=== PATIENT | female | born 1985 | race Caucasian/White ===

== ENCOUNTER → 2019-10-15 18:00 | Outpatient (BNVA) | payer OTHER, SELFPAY | PROVIDERS: Family Provider Family Medicine; PCP Family Medicine; Visit Provider Family Medicine | DX: R10.2 Pelvic and perineal pain (principal); L25.9 Unspecified contact dermatitis, unspecified cause; Z97.5 Presence of (intrauterine) contraceptive device | CPT/HCPCS: 80053; 81000; 87491; 87591; 87661 ==

== ENCOUNTER → 2019-10-23 13:08 | Outpatient (BNVA) | payer OTHER, SELFPAY | PROVIDERS: Family Provider Family Medicine; PCP Family Medicine; Referring Provider Family Medicine; Visit Provider Family Medicine | DX: R10.2 Pelvic and perineal pain (principal) | CPT/HCPCS: 87491; 87591; 87661 ==

== ENCOUNTER → 2019-11-07 14:48 | Outpatient (BNVA) | payer OTHER, SELFPAY | PROVIDERS: Family Provider Family Medicine; PCP Family Medicine; Visit Provider Nurse Practitioner Family | DX: R05 Cough (principal) | CPT/HCPCS: 87635 ==

== ENCOUNTER → 2024-07-12 08:05 | Outpatient (BNVA) | payer OTHER, SELFPAY | PROVIDERS: Family Provider Family Medicine; PCP Family Medicine; Visit Provider Family Medicine | DX: N91.2 Amenorrhea, unspecified (principal); R68.82 Decreased libido; Z00.00 Encounter for general adult medical examination without abnormal findings | CPT/HCPCS: 80053; 80061; 82627; 82670; 84144; 84403; 84443; 85025 ==

== ENCOUNTER 2024-07-21 19:22 | Emergency (ER) | payer OTHER, SELFPAY ==
[2024-07-21] VITALS (9 sets, daily range): BP systolic 98–131; BP diastolic 51–75; PULSE 63–123; RESP 15–20; TEMP 37.6–39.4; O2SAT 92–98; BMI 27.2
--- NOTE | 2024-07-21 20:11 | CTR_ITS ---
PROCEDURE INFORMATION: Exam: CT Abdomen And Pelvis With Contrast Exam date and time: 07/21/2024 8:57 PM Age: 39 years old Clinical indication: Abdominal pain; Localized; Left lower quadrant (llq); Prior surgery; Surgery date: 6+ months; Surgery type: Gb. Hernia repair. Iud. C/O llq pain with fever. History of diverticulitis. ; Additional info: Llq pain fever TECHNIQUE: Imaging protocol: Computed tomography of the abdomen and pelvis with contrast. Radiation optimization: All CT scans at this facility use at least one of these dose optimization techniques: automated exposure control; mA and/or kV adjustment per patient size (includes targeted exams where dose is matched to clinical indication); or iterative reconstruction. Contrast material: OMNI 350; Contrast volume: 100 ml; Contrast route: INTRAVENOUS (IV); COMPARISON: No relevant prior studies available. RADIATION DOSE METRICS: Total DLP (mGy-cm): 406.26 FINDINGS: Lungs: Subsegmental bibasilar atelectasis. The visualized lung bases are otherwise grossly clear. Diaphragm: No evidence of diaphragmatic defect. Liver: No focal hepatic lesion. Gallbladder and biliary ducts: Status post cholecystectomy. No evidence of intrahepatic or extrahepatic biliary dilatation. Pancreas: Unremarkable. Spleen: Unremarkable. Adrenal glands: Unremarkable. Kidneys and ureters: Focal parenchymal hypoenhancement of the mid left kidney suggestive of focal pyelonephritis (images 21-22 of series 3 and image 22 of series 5). No discrete fluid collection to suggest abscess. No evidence of parenchymal abnormality on the right. No evidence of hydronephrosis or ureteral stone. Stomach and bowel: Few scattered colonic diverticula without evidence of acute diverticulitis. No evidence of bowel obstruction or perienteric inflammatory changes. Appendix: Normal appendix. Intraperitoneal space: No evidence of free air or fluid collection. Vasculature: No aneurysmal dilatation or dissection of the abdominal aorta. The celiac trunk, SMA and SOURAV are grossly patent. No evidence of IVC thrombus. The portal vein, SMV and splenic veins are grossly patent. Lymph nodes: No adenopathy. Urinary bladder: Grossly unremarkable. Reproductive: IUD in place in expected position. Otherwise grossly unremarkable. Bones/joints: No evidence of acute fracture or aggressive osseous lesion. Soft tissues: No evidence of fluid collection or hematoma in the superficial soft tissues. CT/CT abdomen pelvis w con* [id number] IMPRESSION: 1. Findings suggestive of focal pyelonephritis on the left.
[2024-07-21 20:19] LABS: Basophils # 0.1 10^3/uL (0.0-0.1); Basophils % 0.4 %; Eosinophils # 0.2 10^3/uL (0.0-0.8); Eosinophils % 1.2 %; Lymphocytes # 1.5 10^3/uL (0.8-4.8); Lymphocytes % 10.5 %; Mean Corpuscular HGB Conc 34.3 g/dL (30-55); Mean Corpuscular Volume 90.5 fl (85-98); Monocytes # 1.3 10^3/uL (0.2-0.9); Monocytes % 9.4 %; Neutrophils # 11.06 10^3/uL (1.8-7.7); Neutrophils % 77.9 %; Nucleated Red Blood Cells % 0 %; Platelet Count 351 10^3/cmm (157-399); Red Blood Count 4.64 10^6/uL (3.85-5.65); Red Cell Distribution Width 13.3 % (12.1-15.1); White Blood Count 14.19 10^3/uL (3.29-11.43)
[2024-07-21 20:23] LABS: Bilirubin Urine Negative (Negative); Blood Urine Negative (Negative); Glucose Urine UA Negative (Normal); Ketones Urine 1+ (Negative); Leukocyte Esterase Urine Negative (Negative); Nitrate Urine Negative (Negative); Protein Urine Trace (Negative); Specific Gravity, Urine 1.016 (1.005-1.030); Urine Appearance Clear (CLEAR); Urine Color Yellow (Yellow); pH Urine 7.5 (5-7)
[2024-07-21 20:28] LABS: Add Urine Microscopic? YES; Bacteria Urine 1+ /hpf; Hyaline Casts Urine 0-4 /lpf; RBC Urine 0-2 /hpf (0-2); Squamous Epithelial Cell Urine 0-5 /hpf (0-5); WBC Urine 0-5 /hpf (0-5)
[2024-07-21 20:33] LABS: HCG, Serum Qual Negative (Negative)
[2024-07-21 20:38] LABS: Lactic Sepsis W/Reflex 0.6 mmol/L (0.5-2.2)
[2024-07-21 20:39] LABS: Alanine Aminotransferase 36 U/L (0-33); Albumin Level 4.5 g/dL (3.5-5.2); Alkaline Phosphatase 55 U/L (35-105); Anion Gap 16.9 (5-19); Aspartate Amino Transferase 25 U/L (0-32); Blood Urea Nitrogen 12 mg/dL (6-20); Calcium 8.8 mg/dL (8.5-10.5); Carbon Dioxide 21 mmol/L (22-29); Chloride 103 mmol/L (98-107); Creatinine Clr Calc Pharmacy 75.6407; Globulin 2.7 g/dL (1.3-4.6); Glomerular Filtration Rate 69.7 mL/min (90-130); Glucose 98 mg/dL (65-115); Lipase 51 U/L (13-60); Osmolality Calculated 284 mOsm/kg (285-295); Potassium 3.9 mmol/L (3.5-5.1); Sodium 137 mmol/L (136-145); Total Bilirubin 0.8 mg/dL (0.15-1.2); Total Protein 7.2 g/dL (6.6-8.7)
[2024-07-21] MEDS: ketorolac 30 mg/mL INJ IVP (20:39)
[2024-07-21] MEDS: morphine 4 mg/mL SDV 1 mL IVP (20:39)
[2024-07-21] MEDS: ondansetron 2 mg/ML SDV 2 mL 4 MG IVP (20:40)
[2024-07-21] MEDS: sodium chloride 0.9% 1,000 ML 999 ML IV (20:40)
--- NOTE | 2024-07-21 20:47 | W.ED.ABDPA2 ---
HPI - Abdominal Pain General: Chief Complaint: Abdominal Pain Stated Complaint: fever, L side pain Time Seen by Provider: 07/21/24 20:06 History of Present Illness: 39-year-old healthy female. She presents with left lower quadrant pain, that she says started in her back and flank on the left side. She developed a fever over the course of the day. She is nauseated. Pain is improved she does not move. She has had diverticulitis in the past, but did not have back pain with that. She is also had a kidney stone in the past as well, but did not have fever with that. Fever has been as high as 103. No respiratory symptoms. Related Data Home Medications ?Medication ?Instructions ?Recorded ?Confirmed levonorgestrel (Mirena) intrauterine 10/15/19 02/13/24 levothyroxine 75 mcg capsule 75 mcg PO DAILY 10/15/19 02/13/24 Previous Rx's ?Medication ?Instructions ?Recorded dextroamphetamine-amphetamine 20 20 mg PO BID 60 days #120 tabs 06/28/24 mg tablet (Adderall) levofloxacin 500 mg tablet 500 mg PO DAILY 7 days #7 tabs 07/21/24 ondansetron 4 mg disintegrating 4 mg PO Q6H PRN nausea and 07/21/24 tablet vomiting #14 tabs oxycodone-acetaminophen 7.5 mg-325 1 tab PO Q6H PRN pain #10 tabs 07/21/24 mg tablet (Percocet) Allergies Allergy/AdvReac Type Severity Reaction Status Date / Time adhesive Allergy rash Verified 02/13/24 15:09 [facility] PFSH: Medical History Low testosterone level in female Annual physical exam Diverticulosis hospitalized w/ diverticulitis 7..24 Primary insomnia IUD (intrauterine device) in place Mirena ADHD Hypothyroidism Surgical History Hx of colonoscopy 8..24--diverticulosis and hemorrhoids H/O breast augmentation History of cholecystectomy H/O hernia repair umbilical Family History (Updated 02/13/24 @ 15:13 by Adele Schafer LPN) Father Alcohol dependence Mother No problems noted. Social History (Reviewed 07/21/24 @ 20:49 by ROYCE Payne Smoking and tobacco/nicotine status: current some day tobacco/nicotine user (vapor) e-cigarettes Alcohol intake: current Alcohol intake frequency: holidays/special occasions only Alcohol type: beer Substance/Drug Use: current Substance/Drug use frequency: Special occassions/opportunity only Household members: spouse and family Number of children: 1 Highest education level completed: Some College, No Degree Current occupational status: employed Current occupation: [employer] Physical Exam Const: COMMON NORMALS: no acute distress GENERAL APPEARANCE: cooperative; not ill appearing and not frail appearing HENMT: COMMON NORMALS: normocephalic, atraumatic and Normal external nose present HEAD & SCALP: normocephalic and atraumatic FACE & SINUS: normal facial exam and face symmetric NOSE: Normal external nose present Eye: COMMON NORMALS: Equal, round and reactive pupils present and EOMs intact bilaterally PUPIL: Yes Equal, round and reactive pupils present Neck/C-Spine: GENERAL: Yes trachea midline Chest: CHEST: Yes Symmetrical chest wall rise Resp: COMMON NORMALS: normal respiratory effort, No retractions, No use of accessory muscles and clear to auscultation bilaterally AUSCULTATION: clear to auscultation bilaterally Cardio: COMMON NORMALS: regular rate and regular rhythm RATE: regular rate RHYTHM: regular rhythm GI: COMMON NORMALS: Normal to inspection, nondistended, normoactive bowel sounds present PALPATION: Yes Tenderness to palpation present (GI) Details: LLQ and Yes Guarding due to palpation present (GI) : BLADDER/KIDNEY EXAM: Yes CVA tenderness on the left Back/Pelvis: GENERAL BACK: Yes CVA tenderness Extremity: COMMON NORMALS: no pedal edema Neuro: LAURITA COMA SCALE: document GCS findings Olivia coma scale eye opening: Spontaneous Olivia coma scale verbal response: Orientated Olivia coma scale motor response: Obey commands Laurita coma scale total score: 15 SENSORY EXAM: Yes extremities (intact) Psych: COMMON NORMALS: speech normal SPEECH: Yes normal speech Skin: COMMON NORMALS: no rashes or lesions noted GENERAL SKIN EXAM: no rashes or lesions noted Course Vital Signs: Vital signs: Vital Signs Temperature 99.6 F 07/21/24 22:47 Pulse Rate 63 07/21/24 23:58 Respiratory Rate 17 07/21/24 23:30 Blood Pressure 99/55 07/21/24 23:58 Pulse Oximetry 92 03/23/25 23:58 Oxygen Delivery Me thod Room Air 07/21/24 21:00 MDM - Abdominal Pain Medical Decision Making Fever 102.9 here. She is tachycardic. White blood cell count is 14. Bicarbonate is 21. CRP is 60. Lactic acid is 0.6. Urinalysis is negative for infection. CT scan pending CT scan reveals focal pyelonephritis on the left kidney. Urinalysis is not overly impressive for infection. There is no stone. No abscess. No evidence of diverticulitis. Antibiotics. Oral fluids. Control of temperature and pain control. Strict precautions given for return such as fever despite 3 doses of antibiotics, vomiting liquids or medications, etc. Lab Data 07/21/24 20:14 07/21/24 20:14 Labs/Radiology: Radiology Impressions Abdomen/Pelvis CT 07/21/24 20:11 IMPRESSION: 1. Findings suggestive of focal pyelonephritis on the left. Laboratory Results WBC 14.19 10^3/uL (3.29-11.43) H 07/21/24 20:14 RBC 4.64 10^6/uL (3.85-5.65) 07/21/24 20:14 Hgb 14.40 g/dL (11.27-16.99) 07/21/24 20:14 Hct 42.0 % (36-47) 07/21/24 20:14 MCV 90.5 fl (85-98) 07/21/24 20:14 MCH 31.0 pg (27-33) 07/21/24 20:14 MCHC 34.3 g/dL (30-55) 07/21/24 20:14 RDW 13.3 % (12.1-15.1) 07/21/24 20:14 Plt Count 351 10^3/cmm (157-399) 07/21/24 20:14 MPV 9.0 fL (7.4-10.4) 07/21/24 20:14 Neut % (Auto) 77.9 % 07/21/24 20:14 Lymph % (Auto) 10.5 % 07/21/24 20:14 [place] % (Auto) 9.4 % 07/21/24 20:14 Eos % (Auto) 1.2 % 07/21/24 20:14 Baso % (Auto) 0.4 % 07/21/24 20:14 Neut # (Auto) 11.06 10^3/uL (1.8-7.7) H 07/21/24 20:14 Lymph # (Auto) 1.5 10^3/uL (0.8-4.8) 07/21/24 20:14 [place] # (Auto) 1.3 10^3/uL (0.2-0.9) H 07/21/24 20:14 Eos # (Auto) 0.2 10^3/uL (0.0-0.8) 07/21/24 20:14 Baso # (Auto) 0.1 10^3/uL (0.0-0.1) 07/21/24 20:14 Nucleated RBC % (auto) 0 % 07/21/24 20:14 Nucleated RBCs # 0.0 /100WBC 07/21/24 20:14 Sodium 137 mmol/L (136-145) 07/21/24 20:14 Potassium 3.9 mmol/L (3.5-5.1) 07/21/24 20:14 Chloride 103 mmol/L (98-107) 07/21/24 20:14 Carbon Dioxide 21 mmol/L (22-29) L 07/21/24 20:14 Anion Gap 16.9 (5-19) 07/21/24 20:14 BUN 12 mg/dL (6-20) 07/21/24 20:14 Creatinine 0.9 mg/dL (0.5-0.9) 07/21/24 20:14 GFR Calculation 69.7 mL/min (90-130) L 07/21/24 20:14 Glucose 98 mg/dL (65-115) 07/21/24 20:14 Calculated Osmolality 284 mOsm/kg (285-295) L 07/21/24 20:14 Lactic Acid 0.6 mmol/L (0.5-2.2) 07/21/24 20:14 Calcium 8.8 mg/dL (8.5-10.5) 07/21/24 20:14 Total Bilirubin 0.8 mg/dL (0.15-1.2) 07/21/24 20:14 AST 25 U/L (0-32) 07/21/24 20:14 ALT 36 U/L (0-33) H 07/21/24 20:14 Alkaline Phosphatase 55 U/L (35-105) 07/21/24 20:14 C-Reactive Protein 60.0 mg/L (0.0-4.9) H 07/21/24 20:14 Total Protein 7.2 g/dL (6.6-8.7) 07/21/24 20:14 Albumin 4.5 g/dL (3.5-5.2) 07/21/24 20:14 Globulin 2.7 g/dL (1.3-4.6) 07/21/24 20:14 Lipase 51 U/L (13-60) 07/21/24 20:14 HCG, Qual Negative (Negative) 07/21/24 20:14 Urine Color Yellow (Yellow) 07/21/24 20:00 Urine Appearance Clear (CLEAR) 07/21/24 20:00 Urine pH 7.5 (5-7) 07/21/24 20:00 Ur Specific [place] 1.016 (1.005-1.030) 07/21/24 20:00 Urine Protein Trace (Negative) A 07/21/24 20:00 Urine Glucose (UA) Negative (Normal) 07/21/24 20:00 Urine Ketones 1+ (Negative) H 07/21/24 20:00 Urine Blood Negative (Negative) 07/21/24 20:00 Urine Nitrate Negative (Negative) 07/21/24 20:00 Urine Bilirubin Negative (Negative) 07/21/24 20:00 Urine Urobilinogen 1.0 mg/dL (Negative) 07/21/24 20:00 Ur Leukocyte Esterase Negative (Negative) 07/21/24 20:00 Urine RBC 0-2 /hpf (0-2) 07/21/24 20:00 Urine WBC 0-5 /hpf (0-5) 07/21/24 20:00 Ur Squamous Epith Cells 0-5 /hpf (0-5) 07/21/24 20:00 Amorphous Sediment Not Reportable 07/21/24 20:00 Urine Bacteria 1+ /hpf (NONE) H 07/21/24 20:00 Hyaline Casts 0-4 /lpf H 07/21/24 20:00 All radiology interpretation(s) finalized by discharge Discharge Plan Discharge Patient Disposition: Home Clinical Impression: Pyelonephritis Condition: Stable Prescriptions: New levofloxacin 500 mg tablet 500 mg PO DAILY 7 Days Qty: 7 0RF ondansetron 4 mg tablet,disintegrating 4 mg PO Q6H PRN (Reason: nausea and vomiting) Qty: 14 0RF oxycodone-acetaminophen [Percocet] 7.5-325 mg tablet 1 tab PO Q6H PRN (Reason: pain) Qty: 10 0RF No Action levothyroxine 75 mcg capsule 75 mcg PO DAILY Mirena 20 mcg/24 hours (5 yrs) 52 mg intrauterine device INTRAUTERI dextroamphetamine-amphetamine [Adderall] 20 mg tablet 20 mg PO BID 60 Days Qty: 120 0RF Rx Instructions: administer doses at least 4-6 hours apart Discharge Orders: Discharge ED (Routine); Ordered 07/21/24 Ordered By: Celso Sampson Referrals: Aline Saxena MD [Primary Care Provider] - 1-3 days Patient Instructions: Kidney Infection (ED), Opioid Safety, Pain Management Activity Restrictions/Additional Instructions: Antibiotics as directed. Plenty of clear liquids. Pain and nausea medication as needed. Check temperature frequently. If you have a fever greater than 100 despite 3 doses of antibiotics, you should return. Return also for vomiting liquids or medications, worsening pain despite treatment, blood in the urine, other concerning symptoms. Call your doctor in the morning for a follow-up appointment. 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
[2024-07-21] MEDS: iohexol 350 mg/mL 500 mL Btl (per mL) IV (21:00)
[2024-07-21] MEDS: oxyCODONE-APAP 5-325 mg Tablet 2 TAB PO (23:51)
[2024-07-21] MEDS: levoFLOXacin 500 mg Tablet PO (23:51)
== END 2024-07-21 23:36 | disposition home or self-care (01) ==
PROVIDERS: Emergency Provider Emergency Medicine; Family Provider Family Medicine; PCP Family Medicine
DX: N12 Tubulo-interstitial nephritis, not specified as acute or chronic (principal); F17.290 Nicotine dependence, other tobacco product, uncomplicated
CPT/HCPCS: 36415; 74177; 80053; 81001; 83605; 83690; 84703; 85025; 86140; 96374; 96375; 99285; J1885; J2270; J2405; J7030; J9999

== ENCOUNTER 2024-07-23 18:37 | Emergency (ER) | payer OTHER, SELFPAY ==
[2024-07-23 18:40] VITALS: BP 112/72; PULSE 78; RESP 17; TEMP 37; O2SAT 99; BMI 28.1
--- NOTE | 2024-07-23 19:02 | W.ED.FEMALGU ---
HPI - Female Genitourinary General: Chief complaint: Urogenital-Female Stated complaint: fever, aches, chills, trouble urinating Time Seen by Provider: 07/23/24 18:52 Source: patient Mode of arrival: ambulatory Limitations: no limitations History of Present Illness: 39-year-old female seen here on Monday she diagnosed with pyelonephritis she states that she has been taking her antibiotics but has had intermittent fevers states she still having some flank pain she denies any vomiting states has been tolerating p.o. states she has had a hard time urinating. States that her fever was 101 today and 1 to be rechecked. Associated symptoms: Deny abdominal pain, headache(s) or nausea Related Data Home Medications ?Medication ?Instructions ?Recorded ?Confirmed levonorgestrel (Mirena) intrauterine 10/15/19 02/13/24 Previous Rx's ?Medication ?Instructions ?Recorded dextroamphetamine-amphetamine 20 20 mg PO BID 60 days #120 tabs 06/28/24 mg tablet (Adderall) levofloxacin 500 mg tablet 500 mg PO DAILY 7 days #7 tabs 07/21/24 ondansetron 4 mg disintegrating 4 mg PO Q6H PRN nausea and 07/21/24 tablet vomiting #14 tabs oxycodone-acetaminophen 7.5 mg-325 1 tab PO Q6H PRN pain #10 tabs 07/21/24 mg tablet (Percocet) levothyroxine 75 mcg tablet 75 mcg PO DAILY #90 tabs 07/22/24 (Synthroid) Allergies Allergy/AdvReac Type Severity Reaction Status Date / Time adhesive Allergy rash Verified 02/13/24 15:09 Review of Systems Const: Reports: fever(s) and body aches; Denies: chills or change in appetite Eyes: Denies: blurry vision or eye discomfort ENMT: Denies: throat pain or dental pain Card: Denies: chest pain Resp: Denies: dyspnea GI: Denies: abdominal pain, nausea, vomiting or diarrhea : Reports: flank pain and dysuria Musc: Denies: neck pain or back pain Skin/Breast: Denies: rash Neuro: Denies: headache(s) PFSH ED PFSH: Medical History Low testosterone level in female Annual physical exam Diverticulosis hospitalized w/ diverticulitis 7 Primary insomnia IUD (intrauterine device) in place Mirena ADHD Hypothyroidism Surgical History Hx of colonoscopy 824--diverticulosis and hemorrhoids H/O breast augmentation History of cholecystectomy H/O hernia repair umbilical Family History Father Alcohol dependence Mother No problems noted. Social History Smoking and tobacco/nicotine status: current some day tobacco/nicotine user (vapor) e-cigarettes Alcohol intake: current Alcohol intake frequency: holidays/special occasions only Alcohol type: beer Substance/Drug Use: current Substance/Drug use frequency: Special occassions/opportunity only Household members: spouse and family Number of children: 1 Highest education level completed: Some College, No Degree Current occupational status: employed Current occupation: [employer] Physical Exam Const: COMMON NORMALS: no acute distress, patient oriented x3 and healthy appearing HENMT: COMMON NORMALS: normocephalic and atraumatic HEAD & SCALP: normocephalic and atraumatic Eye: COMMON NORMALS: conjunctivae normal CONJUNCTIVA: Yes conjunctivae normal Neck/C-Spine: COMMON NORMALS: full ROM and supple Chest: COMMONS NORMALS: normal inspection of the chest Resp: COMMON NORMALS: normal respiratory effort, No retractions, No use of accessory muscles and clear to auscultation bilaterally AUSCULTATION: clear to auscultation bilaterally Cardio: COMMON NORMALS: regular rate, regular rhythm and No murmurs present (Cardio) RATE: regular rate RHYTHM: regular rhythm GI: COMMON NORMALS: Normal to inspection, nondistended, normoactive bowel sounds present, Soft to palpation, non-tender and no masses PALPATION: Yes Soft to palpation : OTHER: left flank tenderness Extremity: COMMON NORMALS: normal to inspection and full ROM Neuro: COMMON NORMALS: patient oriented x3, moves all extremities and no focal motor deficits Psych: COMMON NORMALS: mental status grossly normal, Normal thought process present and cooperative THOUGHT PROCESS: Normal thought process present Skin: COMMON NORMALS: no rashes or lesions noted and no wounds GENERAL SKIN EXAM: no rashes or lesions noted Course Vital Signs: Vital signs: Vital Signs Temperature 98.6 F 07/23/24 18:40 Pulse Rate 66 07/23/24 19:35 Respiratory Rate 16 07/23/24 19:35 Blood Pressure 104/75 07/23/24 19:35 Pulse Oximetry 96 07/23/24 19:35 Oxygen Delivery Me thod Room Air 07/23/24 19:35 MDM - Female Medical Decision Making Patient presents for pyelonephritis she spiked fevers her white count is actually improved she is well-appearing here no signs of sepsis she states she feels improved she is to continue her antibiotics follow-up with PCP return if worsening she understands agrees to plan Medical Records I reviewed the patient's medical records. Lab Data I reviewed the patient's lab results. 07/23/24 19:23 07/23/24 19:23 Laboratory Results WBC 9.74 10^3/uL (3.29-11.43) 07/23/24 19:23 RBC 4.43 10^6/uL (3.85-5.65) 07/23/24 19:23 Hgb 13.70 g/dL (11.27-16.99) 07/23/24 19:23 Hct 41.2 % (36-47) 07/23/24 19:23 MCV 93.0 fl (85-98) 07/23/24 19:23 MCH 30.9 pg (27-33) 07/23/24 19:23 MCHC 33.3 g/dL (30-55) 07/23/24 19:23 RDW 13.6 % (12.1-15.1) 07/23/24 19:23 Plt Count 327 10^3/cmm (157-399) 07/23/24 19:23 MPV 9.4 fL (7.4-10.4) 07/23/24 19:23 Neut % (Auto) 68.4 % 07/23/24 19:23 Lymph % (Auto) 16.0 % 07/23/24 19:23 [place] % (Auto) 12.0 % 07/23/24 19:23 Eos % (Auto) 2.9 % 07/23/24 19:23 Baso % (Auto) 0.3 % 07/23/24 19:23 Neut # (Auto) 6.66 10^3/uL (1.8-7.7) 07/23/24 19:23 Lymph # (Auto) 1.6 10^3/uL (0.8-4.8) 07/23/24 19:23 [place] # (Auto) 1.2 10^3/uL (0.2-0.9) H 07/23/24 19:23 Eos # (Auto) 0.3 10^3/uL (0.0-0.8) 07/23/24 19:23 Baso # (Auto) 0.0 10^3/uL (0.0-0.1) 07/23/24 19:23 Nucleated RBC % (auto) 0 % 07/23/24 19:23 Nucleated RBCs # 0.0 /100WBC 07/23/24 19:23 Sodium 138 mmol/L (136-145) 07/23/24 19:23 Potassium 3.8 mmol/L (3.5-5.1) 07/23/24 19:23 Chloride 101 mmol/L (98-107) 07/23/24 19:23 Carbon Dioxide 24 mmol/L (22-29) 07/23/24 19:23 Anion Gap 16.8 (5-19) 07/23/24 19:23 BUN 11 mg/dL (6-20) 07/23/24 19:23 Creatinine 0.7 mg/dL (0.5-0.9) 07/23/24 19:23 GFR Calculation 93.2 mL/min (90-130) 07/23/24 19:23 Glucose 84 mg/dL (65-115) 07/23/24 19:23 Calculated Osmolality 285 mOsm/kg (285-295) 07/23/24 19:23 Calcium 8.8 mg/dL (8.5-10.5) 07/23/24 19:23 Total Bilirubin 0.5 mg/dL (0.15-1.2) 07/23/24 19:23 AST 23 U/L (0-32) 07/23/24 19:23 ALT 34 U/L (0-33) H 07/23/24 19:23 Alkaline Phosphatase 66 U/L (35-105) 07/23/24 19:23 Total Protein 7.6 g/dL (6.6-8.7) 07/23/24 19:23 Albumin 4.4 g/dL (3.5-5.2) 07/23/24 19:23 Globulin 3.2 g/dL (1.3-4.6) 07/23/24 19:23 Lipase 50 U/L (13-60) 07/23/24 19:23 HCG, Qual Negative (Negative) 07/23/24 19:23 Urine Color Yellow (Yellow) 07/23/24 19:11 Urine Appearance Clear (CLEAR) 07/23/24 19:11 Urine pH 8.0 (5-7) A 07/23/24 19:11 Ur Specific [place] 1.017 (1.005-1.030) 07/23/24 19:11 Urine Protein 1+ (Negative) A 07/23/24 19:11 Urine Glucose (UA) Negative (Normal) 07/23/24 19:11 Urine Ketones Negative (Negative) 07/23/24 19:11 Urine Blood Negative (Negative) 07/23/24 19:11 Urine Nitrate Negative (Negative) 07/23/24 19:11 Urine Bilirubin Negative (Negative) 07/23/24 19:11 Urine Urobilinogen 1.0 mg/dL (Negative) 07/23/24 19:11 Ur Leukocyte Esterase Negative (Negative) 07/23/24 19:11 Amorphous Sediment Not Reportable 07/23/24 19:11 No radiology studies performed this visit Discharge Plan Discharge Patient Disposition: Home Clinical Impression: Pyelonephritis Condition: Stable Prescriptions: No Action Mirena 20 mcg/24 hours (5 yrs) 52 mg intrauterine device INTRAUTERI dextroamphetamine-amphetamine [Adderall] 20 mg tablet 20 mg PO BID 60 Days Qty: 120 0RF Rx Instructions: administer doses at least 4-6 hours apart levothyroxine [Synthroid] 75 mcg tablet 75 mcg PO DAILY Qty: 90 3RF levofloxacin 500 mg tablet 500 mg PO DAILY 7 Days Qty: 7 0RF ondansetron 4 mg tablet,disintegrating 4 mg PO Q6H PRN (Reason: nausea and vomiting) Qty: 14 0RF oxycodone-acetaminophen [Percocet] 7.5-325 mg tablet 1 tab PO Q6H PRN (Reason: pain) Qty: 10 0RF Discharge Orders: Discharge ED (Routine); Ordered 07/23/24 Ordered By: Neeta Alonso Referrals: Aline Saxena MD [Primary Care Provider] - Discharge Diet: Advance as tolerated Discharge Activity: Resume usual activity Patient Instructions: Pyelonephritis Print Language: Occitan Coding Level of Care Code 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
[2024-07-23 19:31] VITALS: RESP 16; O2SAT 97
[2024-07-23] MEDS: levofloxacin-dextrose 5 % 750 MG/150 ML PREMIX 100 MG IV (19:31)
[2024-07-23] MEDS: ondansetron 2 mg/ML SDV 2 mL 4 MG IVP (19:31)
[2024-07-23] MEDS: morphine 4 mg/mL SDV 1 mL IVP (19:31)
[2024-07-23 19:35] VITALS: BP 104/75; PULSE 66; RESP 16; O2SAT 96
[2024-07-23 19:45] LABS: Basophils % 0.3 %; Eosinophils # 0.3 10^3/uL (0.0-0.8); Eosinophils % 2.9 %; Hematocrit 41.2 % (36-47); Lymphocytes # 1.6 10^3/uL (0.8-4.8); Mean Corpuscular HGB Conc 33.3 g/dL (30-55); Mean Corpuscular Hemoglobin 30.9 pg (27-33); Mean Platelet Volume 9.4 fL (7.4-10.4); Monocytes # 1.2 10^3/uL (0.2-0.9); Neutrophils # 6.66 10^3/uL (1.8-7.7); Neutrophils % 68.4 %; Nucleated Red Blood Cells % 0 %; Platelet Count 327 10^3/cmm (157-399); Red Blood Count 4.43 10^6/uL (3.85-5.65); Red Cell Distribution Width 13.6 % (12.1-15.1); White Blood Count 9.74 10^3/uL (3.29-11.43)
[2024-07-23 19:54] LABS: HCG, Serum Qual Negative (Negative)
[2024-07-23 19:56] LABS: Bilirubin Urine Negative (Negative); Blood Urine Negative (Negative); Glucose Urine UA Negative (Normal); Ketones Urine Negative (Negative); Leukocyte Esterase Urine Negative (Negative); Nitrate Urine Negative (Negative); Protein Urine 1+ (Negative); Specific Gravity, Urine 1.017 (1.005-1.030); Urine Appearance Clear (CLEAR); Urine Color Yellow (Yellow)
[2024-07-23 20:01] LABS: Add Urine Microscopic? YES; Bacteria Urine Trace /hpf; Hyaline Casts Urine 0-4 /lpf
[2024-07-23 20:04] LABS: Alanine Aminotransferase 34 U/L (0-33); Albumin Level 4.4 g/dL (3.5-5.2); Alkaline Phosphatase 66 U/L (35-105); Anion Gap 16.8 (5-19); Aspartate Amino Transferase 23 U/L (0-32); Blood Urea Nitrogen 11 mg/dL (6-20); Calcium 8.8 mg/dL (8.5-10.5); Carbon Dioxide 24 mmol/L (22-29); Chloride 101 mmol/L (98-107); Creatinine Clr Calc Pharmacy 98.7977; Globulin 3.2 g/dL (1.3-4.6); Glomerular Filtration Rate 93.2 mL/min (90-130); Glucose 84 mg/dL (65-115); Lipase 50 U/L (13-60); Osmolality Calculated 285 mOsm/kg (285-295); Potassium 3.8 mmol/L (3.5-5.1); Sodium 138 mmol/L (136-145); Total Bilirubin 0.5 mg/dL (0.15-1.2); Total Protein 7.6 g/dL (6.6-8.7)
[2024-07-23 21:18] VITALS: BP 116/69; PULSE 62; RESP 16; O2SAT 99
== END 2024-07-23 21:20 | disposition home or self-care (01) ==
PROVIDERS: Emergency Provider Emergency Medicine; PCP Family Medicine
DX: N12 Tubulo-interstitial nephritis, not specified as acute or chronic (principal); F17.290 Nicotine dependence, other tobacco product, uncomplicated
CPT/HCPCS: 80053; 81001; 83690; 84703; 85025; 96365; 96366; 96375; 99284; J1956; J2270; J2405

== ENCOUNTER 2024-08-05 07:35 | Outpatient (CLI) | payer OTHER, SELFPAY ==
--- NOTE | 2024-08-05 07:30 | US_ITS ---
WS: [id number] RIGHT UPPER QUADRANT ULTRASOUND HISTORY: abnormal liver enzymes COMPARISON: None available. Liver: 14.9 cm in length. Normal size liver and echogenicity. No bile duct dilatation or mass. Portal Vein: Normal hepatopetal flow with monophasic waveform. Gallbladder: Prior cholecystectomy. CBD: 0.3 cm Pancreas: Normal size and echogenicity. Right kidney: 12.0 cm in length. Normal size and echogenicity. No hydronephrosis or mass. Aorta and IVC: Unremarkable abdominal aorta and IVC. No ascites. US/US abdomen limited [id number] IMPRESSION: 1. Prior cholecystectomy. 2. Negative liver.
== END 2024-08-05 07:36 | disposition home or self-care (01) ==
PROVIDERS: PCP Family Medicine; Visit Provider Family Medicine
DX: R74.8 Abnormal levels of other serum enzymes (principal); R79.89 Other specified abnormal findings of blood chemistry; Z90.49 Acquired absence of other specified parts of digestive tract
CPT/HCPCS: 76705

== ENCOUNTER → 2024-08-09 10:08 | Outpatient (BNVA) | payer OTHER, SELFPAY | PROVIDERS: PCP Family Medicine; Visit Provider Family Medicine | DX: N12 Tubulo-interstitial nephritis, not specified as acute or chronic (principal) | CPT/HCPCS: 87086 ==

== ENCOUNTER → 2024-10-11 08:19 | Outpatient (BNVA) | payer OTHER, SELFPAY | PROVIDERS: PCP Family Medicine; Visit Provider Family Medicine | DX: R79.89 Other specified abnormal findings of blood chemistry (principal); N12 Tubulo-interstitial nephritis, not specified as acute or chronic | CPT/HCPCS: 84403; 87086 ==

== ENCOUNTER → 2024-12-31 08:39 | Outpatient (BNVA) | payer OTHER, SELFPAY | PROVIDERS: PCP Family Medicine | DX: Z11.3 Encounter for screening for infections with a predominantly sexual mode of transmission (principal) | CPT/HCPCS: 86705; 86706; 86803; 87340; 87806 ==

== ENCOUNTER → 2025-03-31 08:26 | Outpatient (BNVA) | payer OTHER, SELFPAY | PROVIDERS: PCP Family Medicine; Visit Provider Family Medicine | DX: N39.0 Urinary tract infection, site not specified (principal) | CPT/HCPCS: 87086 ==

== ENCOUNTER 2025-04-14 16:04 | Outpatient (CLI) | payer OTHER, SELFPAY ==
--- NOTE | 2025-04-14 16:00 | CTR_ITS ---
PROCEDURE INFORMATION: Exam: CT Abdomen And Pelvis Without And With Contrast Exam date and time: 04/14/2025 04:49 PM Age: 40 years old Clinical indication: Other: Recurrent UTI, prior surgery; Surgery date: 6+ months; Surgery type: Gb, hernia; Additional info: Recurrent UTI, diverticulitis; Urogram, this needs to be CT urogram--need to fistula between colon TECHNIQUE: Imaging protocol: Computed tomography of the abdomen and pelvis without and with contrast. 3D rendering (Not supervised by radiologist): MIP and/or 3D reconstructed images were created by the technologist. Radiation optimization: All CT scans at this facility use at least one of these dose optimization techniques: automated exposure control; mA and/or kV adjustment per patient size (includes targeted exams where dose is matched to clinical indication); or iterative reconstruction. Contrast material: OMNI 350; Contrast volume: 100 ml; Contrast route: INTRAVENOUS (IV); COMPARISON: CT abdomen pelvis w con* [id number] 07/21/2024 08:57 PM RADIATION DOSE METRICS: Total DLP (mGy-cm): 1750.36 FINDINGS: Lungs: 7 mm subpleural nodule in the lateral right lower lobe (series 7, image 3). This was incompletely visualized on the prior CT on the very 1st image. Liver: Normal. No mass. Gallbladder and biliary ducts: Prior cholecystectomy. Pancreas: Normal. No ductal dilation. Spleen: Normal. No splenomegaly. Adrenal glands: Normal. No mass. Kidneys and ureters: No renal calculi. Uniform enhancement of both kidneys. Symmetric excretion of contrast from the kidneys. No evidence for contrast from the renal collecting systems, ureters or bladder within the bowel. Stomach and bowel: Partially food filled stomach. Moderate stool in the ascending and transverse colon. Diverticulosis. Appendix: No evidence of appendicitis. Intraperitoneal space: Unremarkable. No free air. No significant fluid collection. Vasculature: Normal variant common origin of the celiac axis and SMA. Lymph nodes: Unremarkable. No enlarged lymph nodes. Urinary bladder: Minimally distended bladder. Reproductive: Radiopaque IUD within uterus. Prominent right adnexal/ovarian follicle/cyst. Bones/joints: Mild degenerative changes of the lower thoracic spine. Soft tissues: Unremarkable. CT/CT abdomen pelvis wo/w [id number] IMPRESSION: 1. 7 mm subpleural nodule in the lateral right lower lobe (series 7, image 3). This was incompletely visualized on the prior CT on the very 1st image. For patients at low risk (minimal or absent history of smoking and of other known risk factors), recommend CT Chest at 6-12 months, then consider CT Chest at 18-24 months. For patients at high risk (history of smoking or of other known risk factors), recommend CT Chest at 6-12 months, then CT Chest at 18-24 months. (Reference: Amie) 2. Prominent right adnexal/ovarian follicle/cyst. 3. No evidence for contrast from the renal collecting systems, ureters or bladder within the bowel. REFERENCES: Amie H, et al. Guidelines for Management of Incidental Pulmonary Nodules Detected on CT Images: From the Fleischner Society 2017. Radiology. 2017;284(1):228-243.
[2025-04-14] MEDS: iohexol 350 mg/mL 500 mL Btl (per mL) IV (16:59)
== END 2025-04-14 16:05 | disposition home or self-care (01) ==
LOC: RAD 16:05
PROVIDERS: PCP Family Medicine; Visit Provider Family Medicine
DX: K57.92 Diverticulitis of intestine, part unspecified, without perforation or abscess without bleeding (principal); R91.1 Solitary pulmonary nodule; Z90.49 Acquired absence of other specified parts of digestive tract; N83.201 Unspecified ovarian cyst, right side
CPT/HCPCS: 74178

== ENCOUNTER 2025-04-25 14:20 | Outpatient (CLI) | payer OTHER, SELFPAY ==
--- NOTE | 2025-04-25 17:00 | US_ITS ---
WS: [id number] US pelv w/transvag [id number] HISTORY: R ovarian cyst on CT COMPARISON: CT 04/14/2025 Uterus: 7.2 cm x 3.9 cm x 3.9 cm. Normal size anteverted uterus. No fibroid or mass. Endometrium: 0.5 cm. IUD is noted centrally in good position. Right ovary: 3.5 cm x 2.6 cm x 2.5 cm. Normal size and vascularity, no cystic or solid masses. Small follicles in the RIGHT ovary. Small component of increased echogenicity within the follicle suggesting internal hemorrhage. No mass. Normal vascularity. Left ovary: 2.7 cm x 1.7 cm x 1.4 cm. Normal size and vascularity, no cystic or solid masses. No free fluid in the cul-de-sac. US/US pelv w/transvag [id number] IMPRESSION: 1. IUD in good position. 2. Small hemorrhagic follicle RIGHT ovary. 3. No ovarian cyst or solid mass.
== END 2025-04-25 14:21 | disposition home or self-care (01) ==
LOC: RAD 14:21
PROVIDERS: PCP Family Medicine; Visit Provider Family Medicine
DX: N83.01 Follicular cyst of right ovary (principal)
CPT/HCPCS: 76830; 76856